=== PATIENT | female | born 1925 | race African-American/Black ===

== ENCOUNTER → 2017-08-13 | Outpatient (CLI) | payer MEDICARE, OTHER ==
[2016-01-25 15:00] VITALS: BP 141/64
[~2017-08-13] MED LIST: ALLO100T PO; ALLO300T PO; AMLO10TA4 PO; AMLO5TAB2 PO; ASPI-39 PO; CALC0.25 PO; COLC0.6T34 PO; DONE5TAB7 PO; FLUO25PO PO; FURO40TA4 PO; GABA-586 PO; HYDR-2762 PO; INSU100C4 SQ; INSU100I16 SQ; LIDO700A4 TP; MEGE40TA PO; METO25TA4 PO; OMEP40CA5 PO; PRAV40TA2 PO; PRED5DRO16 EACHEYE; TRAV5DRO OU; VALS160T3 PO
--- NOTE | 2017-08-13 16:55 | RAD ---
Pelvic ultrasound, 08/13/2017: History: Vaginal bleeding Transabdominal scans were obtained. The uterus is elongated measuring 13 x 3.8 x 3.2 cm. The endometrium in the superior aspect of the uterus appears thickened measuring 14 mm in AP dimension. The ovaries were not visualized. There is a lobulated cystic-appearing structure in the cul-de-sac. It measures 13 x 7 x 7 cm. Only a small fluid collection was present in this region on the previous study of 03/22/2015. IMPRESSION: 1. Nonspecific thickening of the central uterine echo complex. 2. Enlarging cystic structure in the cul-de-sac. CT scanning is suggested for further evaluation, if clinically indicated.
== END | disposition home or self-care (01) ==
LOC: US 14:19
PROVIDERS: ATTEND Internal Medicine
DX: N93.9 Abnormal uterine and vaginal bleeding, unspecified (principal)
CPT/HCPCS: 76856

== ENCOUNTER → 2017-11-09 | Outpatient (CLI) | payer MEDICARE, OTHER ==
[2017-11-09 15:28] LABS: CREATININE 2.7 mg/dL (0.6-1.0)
[2017-11-09 15:28] LABS: GFR 20.1
== END | disposition home or self-care (01) ==
LOC: CT 14:36
DX: N85.8 Other specified noninflammatory disorders of uterus (principal); I70.0 Atherosclerosis of aorta
CPT/HCPCS: 36415; 72192; 82565

== ENCOUNTER → 2017-11-13 | Outpatient (CLI) | payer OTHER, MEDICARE | END | disposition home or self-care (01) | LOC: MRI 14:22 | DX: R19.00 Intra-abdominal and pelvic swelling, mass and lump, unspecified site (principal); R93.8 Abnormal findings on diagnostic imaging of other specified body structures; N95.9 Unspecified menopausal and perimenopausal disorder | CPT/HCPCS: 72195 ==